=== PATIENT | male | born 1945 | race Caucasian/White ===

== ENCOUNTER 2017-01-15 18:57 | Inpatient (IN) | payer OTHER ==
[~2017-01-15] VITALS: Ht 172.7 cm; Wt 88.2 kg
[~2017-01-15 18:57] MED LIST: ASPIR 8181 M1; Antivert PO; BENAZEPRIL HCL10 MG PO; BENTYL20 MG PO; CELEBREX200 MG PO; CELEXA10 MG; CRESTOR20 MG; Fish Oil PO; IMODIUM MS REL1 EACH PO; Lidoderm 5% Patch TD; METAXALONE800 MG PO; NEXIUM40 MG PO; PERCOCET 5/31 TABLET PO; PRAVASTATIN SOD10 MG PO; PRAVASTATIN SOD20 MG PO; PRILOSEC20 MG PO; PROPRANOLOL HCL40 MG; ROXICET 5-3251 EACH PO; VIAGRA100 MG; VIAGRA50 MG; ZITHROMAX Z-PA250 MG PO; ZOFRAN ODT4 MG PO; predniSONE PO
[2017-01-15 19:17] LABS: POINT-OF-CARE METER ID UU13113702
[2017-01-15 19:36] LABS: HEMATOCRIT 34.6 % (38.0-50.0); MCH 30.3 PG (29.0-34.0); MCHC 32.7 G/DL (30.0-36.0); MCV 92.8 FL (86-99); MEAN PLAT.VOLUME 11.2 uM^3 (9.0-12.4); PLATELET COUNT 201 K/uL (156-360); RBC DIS.WIDTH-CV 13.4 % (11.8-14.6); RBC DIS.WIDTH-SD 45.6 % (39-53); RED BLOOD COUNT 3.73 M/uL (4.00-5.50); WHITE BLOOD COUNT 11.7 K/uL (4.1-10.2)
[2017-01-15 19:51] LABS: CHLORIDE 113 mEq/L (99-109); POTASSIUM 5.3 mEq/L (3.7-5.4); SODIUM 142 mEq/L (136-147)
[2017-01-15 19:53] LABS: GLUCOSE 117 mg/dL (70-99)
[2017-01-15 19:54] LABS: ANION GAP 10 MEQ/L (2-14)
[2017-01-15 19:56] LABS: GFR ESTIMATE (CALCULATED) 11 mL/min/
[2017-01-15 19:57] LABS: UREA NITROGEN (BUN) 75 mg/dL (9-23)
[2017-01-15 19:59] LABS: TROP-I INTERPRETATION NEGATIVE; TROPONIN-I < 0.01 ng/mL (0.0-0.30)
[2017-01-15] MEDS ORDERED: VITAMIN CODE PO (20:51)
[2017-01-15] MEDS ORDERED: NIACIN250 M1 PO (20:52)
[2017-01-15] MEDS ORDERED: FENOFIBRATE145 M1 PO (20:52)
[2017-01-15] MEDS ORDERED: GINSENG100 M2 PO (20:52)
[2017-01-15] MEDS ORDERED: VOLTAREN75 MG PO (20:53)
[2017-01-15] MEDS ORDERED: METFORMIN HCL500 M1 PO (20:53)
[2017-01-15] MEDS ORDERED: LYRICA75 MG PO (20:53)
[2017-01-15 20:56] LABS: CREATINE KINASE 235 IU/L (1-294)
[2017-01-15 23:29] LABS: URIC ACID 9.2 mg/dL (3.1-9.2)
[2017-01-15 23:38] LABS: ADD MIUA? NO; BILIRUBIN NEGATIVE; BLOOD NEGATIVE; COLOR YELLOW ((YELLOW)); GLUCOSE (STRIP) NEGATIVE; KETONES NEGATIVE; LEUKOCYTES NEGATIVE; NITRITE NEGATIVE; PROTEIN (STRIP) 30; SPECIFIC GRAVITY 1.015 (1.000-1.030); UROBILINOGEN 0.2 MG/DL (0.2-1.0)
[2017-01-16 00:55] VITALS: BP 136/77
[2017-01-16 01:29] LABS: CHLORIDE 116 mEq/L (99-109); POTASSIUM 5.5 mEq/L (3.7-5.4); SODIUM 142 mEq/L (136-147)
[2017-01-16 01:32] LABS: ANION GAP 7 MEQ/L (2-14)
[2017-01-16 01:35] LABS: GFR ESTIMATE (CALCULATED) 15 mL/min/
[2017-01-16 01:36] LABS: GLUCOSE 217 mg/dL (70-99); UREA NITROGEN (BUN) 72 mg/dL (9-23)
[2017-01-16 04:00] VITALS: BP 109/62
[2017-01-16 06:43] LABS: HEMATOCRIT 28.9 % (38.0-50.0); MCH 31.3 PG (29.0-34.0); MCHC 33.2 G/DL (30.0-36.0); MCV 94.1 FL (86-99); MEAN PLAT.VOLUME 11.3 uM^3 (9.0-12.4); PLATELET COUNT 155 K/uL (156-360); RBC DIS.WIDTH-CV 13.4 % (11.8-14.6); RED BLOOD COUNT 3.07 M/uL (4.00-5.50); WHITE BLOOD COUNT 8.7 K/uL (4.1-10.2)
[2017-01-16 07:10] LABS: ANION GAP 8 MEQ/L (2-14); CHLORIDE 116 MEQ/L (99-109); GFR ESTIMATE (CALCULATED) 19 mL/min/; GLUCOSE 125 mg/dL (70-99); SAMPLE HEMOLYSIS CHECK 0; SAMPLE ICTERIC CHECK 0; SAMPLE LIPEMIA CHECK 0; SODIUM 143 MEQ/L (136-147); UREA NITROGEN (BUN) 67 mg/dL (9-23)
[2017-01-16 07:36] VITALS: BP 104/59
[2017-01-16 11:53] VITALS: BP 129/68
[2017-01-16 14:08] LABS: INTERNAL CONTROL VALID? YES
[2017-01-16 14:17] LABS: C DIFF TOXIN NEGATIVE (NEGATIVE)
[2017-01-16 14:18] LABS: PROBE CHECK PASS; SPECIMEN PROCESSING CONTROL PASS
[2017-01-16 14:49] LABS: HEMATOCRIT 33.3 % (38.0-50.0); MCV 95.1 FL (86-99)
[2017-01-16 20:09] VITALS: BP 122/83
[2017-01-16 23:33] VITALS: BP 110/84
[2017-01-17] VITALS: BP 165/76
[2017-01-17 04:40] VITALS: BP 122/71
[2017-01-17 06:09] LABS: MCH 31.5 PG (29.0-34.0); MCHC 33.9 G/DL (30.0-36.0); MCV 93.1 FL (86-99); MEAN PLAT.VOLUME 11.2 uM^3 (9.0-12.4); PLATELET COUNT 173 K/uL (156-360); RBC DIS.WIDTH-CV 13.4 % (11.8-14.6); RBC DIS.WIDTH-SD 45.4 % (39-53); RED BLOOD COUNT 3.33 M/uL (4.00-5.50); WHITE BLOOD COUNT 6.6 K/uL (4.1-10.2)
[2017-01-17 08:00] VITALS: BP 143/87
[2017-01-17 08:00] LABS: ANION GAP 7 MEQ/L (2-14); CHLORIDE 116 MEQ/L (99-109); GLUCOSE 147 mg/dL (70-99); IRON 46 MCG/DL (35-150); POTASSIUM 5.1 MEQ/L (3.7-5.4); SAMPLE HEMOLYSIS CHECK 0; SAMPLE ICTERIC CHECK 0; SAMPLE LIPEMIA CHECK 0; SODIUM 144 MEQ/L (136-147); UREA NITROGEN (BUN) 34 mg/dL (9-23)
[2017-01-17 08:01] LABS: GFR ESTIMATE (CALCULATED) 37 mL/min/
[2017-01-17 08:12] LABS: FERRITIN 396 NG/ML (22-322)
[2017-01-17] MEDS ORDERED: METRONIDAZOLE500 MG PO (09:27)
[2017-01-17] MEDS ORDERED: CIPROFLOXACIN250 MG PO (09:27)
[2017-01-17] MEDS ORDERED: BENAZEPRIL HCL5 MG PO (09:27)
[2017-01-17] MEDS ORDERED: NORVASC5 MG PO (11:12)
== END 2017-01-17 12:54 | disposition home or self-care (01) | DRG 682 ==
LOC: EME → EDBD 18:57 → 5SOUTH 22:50 → EDOF 22:50 → 5SOUTH 01-16 00:40
PROVIDERS: Emergency Medicine; Hospitalist; Physician Assistant Medical
DX: N17.9 Acute kidney failure, unspecified (principal); E86.0 Dehydration; I10 Essential (primary) hypertension; E78.5 Hyperlipidemia, unspecified; E11.9 Type 2 diabetes mellitus without complications; K21.9 Gastro-esophageal reflux disease without esophagitis; G89.29 Other chronic pain; N28.1 Cyst of kidney, acquired; I95.9 Hypotension, unspecified; K76.0 Fatty (change of) liver, not elsewhere classified; Z81.1 Family history of alcohol abuse and dependence; M19.071 Primary osteoarthritis, right ankle and foot; E87.2 Acidosis; E87.5 Hyperkalemia; K57.33 Diverticulitis of large intestine without perforation or abscess with bleeding; K44.9 Diaphragmatic hernia without obstruction or gangrene; D64.89 Other specified anemias; E86.1 Hypovolemia
CPT/HCPCS: 71020; 74176; 80048; 80048 91; 80069; 81003; 82272; 82436; 82550; 82607; 82728; 82746; 82948; 83540; 83935; 84133; 84300; 84466; 84484; 84550; 85014; 85018; 85027; 87493; 93005; 99281; 99285; J0744; J7030; S0030

== ENCOUNTER → 2018-01-02 | Outpatient (CLI) | payer MEDICARE, OTHER ==
[~2018-01-02] MED LIST changes: +BENAZEPRIL HCL5 MG PO; +CIPROFLOXACIN250 MG PO; +FENOFIBRATE145 M1 PO; +GINSENG100 M2 PO; +LYRICA75 MG PO; +METFORMIN HCL500 M1 PO; +METRONIDAZOLE500 MG PO; +NIACIN250 M1 PO; +NORVASC5 MG PO; +VITAMIN CODE PO; +VOLTAREN75 MG PO
== END | disposition home or self-care (01) ==
LOC: CDC 14:07
DX: Z01.810 Encounter for preprocedural cardiovascular examination (principal); N40.1 Benign prostatic hyperplasia with lower urinary tract symptoms; R39.12 Poor urinary stream; R94.31 Abnormal electrocardiogram [ECG] [EKG]
CPT/HCPCS: 93000